=== PATIENT | male | born 1980 | race Caucasian/White ===

== ENCOUNTER 2017-11-21 12:28 | Emergency (ER) | payer OTHER ==
[2017-11-21 12:37] VITALS: RESP 16; TEMP 97.8
[2017-11-21] MEDS ORDERED: SODIUM CHLORIDE 0.9% 1,000 ML IV STA (12:46)
--- NOTE | 2017-11-21 12:49 | ED ---
General Adult HPI - General Chief complaint: Overdose Stated complaint: Overdose Time Seen by Provider: 11/21/17 12:31 Source: patient, EMS, RN notes reviewed, old records reviewed Mode of arrival: EMS - History of Present Illness Initial comments: This is a 37-year-old male to the ER for evaluation. Patient has a for evaluation regarding substance ingestion. Patient found by family member to not be acting appropriately. Patient is recent stress in life including recent passing of a relative. Patient denies taking any drugs earlier to medications. Unknown drug history. Patient states he took some Xanax and [place] - Related Data Home Medications Medication Instructions Recorded Confirmed No Known Home Medications [No 11/21/17 11/21/17 Known Home Medications] Allergies Allergy/AdvReac Type Severity Reaction Status Date / Time No Known Allergies Allergy Verified 11/21/17 12:51 Review of Systems ROS Statement: Those systems with pertinent positive or pertinent negative responses have been documented in the HPI. ROS Other: All systems not noted in ROS Statement are negative. Past Medical History Additional Past Medical History / Comment(s): back pain History of Any Multi-Drug Resistant Organisms: None Reported Past Surgical History: Orthopedic Surgery Past Psychological History: ADD/ADHD, Anxiety, Depression Smoking Status: Current every day smoker Past Alcohol Use History: None Reported Past Drug Use History: None Reported General Exam - General Exam Comments Initial Comments: Patient is tachycardic with dilated pupils General appearance: alert, in no apparent distress Head exam: Present: atraumatic, normocephalic, normal inspection Eye exam: Present: normal appearance, PERRL, EOMI. Absent: scleral icterus, conjunctival injection, periorbital swelling Pupils: Present: mydriatic ENT exam: Present: normal exam, mucous membranes moist Neck exam: Present: normal inspection. Absent: tenderness, meningismus, lymphadenopathy Respiratory exam: Present: normal lung sounds bilaterally. Absent: respiratory distress, wheezes, rales, rhonchi, stridor Cardiovascular Exam: Present: regular rate, normal rhythm, normal heart sounds. Absent: systolic murmur, diastolic murmur, rubs, gallop, clicks GI/Abdominal exam: Present: soft, normal bowel sounds. Absent: distended, tenderness, guarding, rebound, rigid Extremities exam: Present: normal inspection, full ROM, normal capillary refill. Absent: tenderness, pedal edema, joint swelling, calf tenderness Back exam: Present: normal inspection Neurological exam: Present: alert, oriented X3, CN II-XII intact Psychiatric exam: Present: normal affect, normal mood Skin exam: Present: warm, dry, intact, normal color. Absent: rash Course Vital Signs 11/21/17 11/21/17 12:33 15:59 Temperature 97.8 F 97.8 F Pulse Rate 134 H 109 H Respiratory 16 16 Rate Blood Pressure 156/101 160/83 O2 Sat by Pulse 97 98 Oximetry - Reevaluation(s) Reevaluation #1: 11/21/17 13:13 Patient based on symptoms and toxicology appears to be lying about drug ingestion Patient is awake and alert, not homicidal or suicidal, ambulate without difficulty EKG Findings - EKG Comments: EKG Findings:: EKG shows sinus tachycardia rate 108, WA 136, QRS 94, QTC 431 Medical Decision Making - Medical Decision Making 37 male brought in for a toxicology evaluation. Patient's awake and alert throughout ER stay no homicidal or suicidal. Patient can be discharged home - Lab Data Result diagrams: 11/21/17 13:03 11/21/17 13:03 Lab Results 11/21/17 11/21/17 11/21/17 Range/Units 13:03 13:03 13:03 WBC 10.9 H (3.8-10.6) k/uL RBC 5.27 (4.30-5.90) m/uL Hgb 16.5 (13.0-17.5) gm/dL Hct 50.5 (39.0-53.0) % MCV 95.9 (80.0-100.0) fL MCH 31.3 (25.0-35.0) pg MCHC 32.6 (31.0-37.0) g/dL RDW 12.7 (11.5-15.5) % Plt Count 262 (150-450) k/uL Neutrophils % 82 % Lymphocytes % 10 % Monocytes % 6 % Eosinophils % 1 % Basophils % 0 % Neutrophils # 8.9 H (1.3-7.7) k/uL Lymphocytes # 1.0 (1.0-4.8) k/uL Monocytes # 0.6 (0-1.0) k/uL Eosinophils # 0.1 (0-0.7) k/uL Basophils # 0.0 (0-0.2) k/uL PT (9.0-12.0) sec INR (<1.2) Sodium 139 (137-145) mmol/L Potassium 4.8 (3.5-5.1) mmol/L Chloride 100 (98-107) mmol/L Carbon Dioxide 26 (22-30) mmol/L Anion Gap 13 mmol/L BUN 11 (9-20) mg/dL Creatinine 0.73 (0.66-1.25) mg/dL Est GFR (MDRD) Af Amer >60 (>60 ml/min/1.73 sqM) Est GFR (MDRD) Non-Af >60 (>60 ml/min/1.73 sqM) Glucose 92 (74-99) mg/dL Calcium 9.9 (8.4-10.2) mg/dL Total Bilirubin 0.4 (0.2-1.3) mg/dL AST 19 (17-59) U/L ALT 23 (21-72) U/L Alkaline Phosphatase 54 (38-126) U/L Total Creatine Kinase 120 (55-170) U/L CK-MB (CK-2) 1.0 (0.0-2.4) ng/mL CK-MB (CK-2) Rel Index 0.8 Troponin I <0.012 (0.000-0.034) ng/mL Total Protein 6.8 (6.3-8.2) g/dL Albumin 4.0 (3.5-5.0) g/dL Lipase 28 (23-300) U/L Salicylates <1.0 mg/dL Urine Opiates Screen (NotDetected) Ur Oxycodone Screen (NotDetected) Urine Methadone Screen (NotDetected) Ur Propoxyphene Screen (NotDetected) Acetaminophen <10.0 ug/mL Ur Barbiturates Screen (NotDetected) U Tricyclic Antidepress (NotDetected) Ur Phencyclidine Scrn (NotDetected) Ur Amphetamines Screen (NotDetected) U Methamphetamines Scrn (NotDetected) U Benzodiazepines Scrn (NotDetected) Urine Cocaine Screen (NotDetected) U Marijuana (THC) Screen (NotDetected) Serum Alcohol <10 mg/dL 02/17/18 02/17/18 Range/Units 13:03 14:00 WBC (3.8-10.6) k/uL RBC (4.30-5.90) m/uL Hgb (13.0-17.5) gm/dL Hct (39.0-53.0) % MCV (80.0-100.0) fL MCH (25.0-35.0) pg MCHC (31.0-37.0) g/dL RDW (11.5-15.5) % Plt Count (150-450) k/uL Neutrophils % % Lymphocytes % % Monocytes % % Eosinophils % % Basophils % % Neutrophils # (1.3-7.7) k/uL Lymphocytes # (1.0-4.8) k/uL Monocytes # (0-1.0) k/uL Eosinophils # (0-0.7) k/uL Basophils # (0-0.2) k/uL PT 11.0 (9.0-12.0) sec INR 1.1 (<1.2) Sodium (137-145) mmol/L Potassium (3.5-5.1) mmol/L Chloride (98-107) mmol/L Carbon Dioxide (22-30) mmol/L Anion Gap mmol/L BUN (9-20) mg/dL Creatinine (0.66-1.25) mg/dL Est GFR (MDRD) Af Amer (>60 ml/min/1.73 sqM) Est GFR (MDRD) Non-Af (>60 ml/min/1.73 sqM) Glucose (74-99) mg/dL Calcium (8.4-10.2) mg/dL Total Bilirubin (0.2-1.3) mg/dL AST (17-59) U/L ALT (21-72) U/L Alkaline Phosphatase (38-126) U/L Total Creatine Kinase (55-170) U/L CK-MB (CK-2) (0.0-2.4) ng/mL CK-MB (CK-2) Rel Index Troponin I (0.000-0.034) ng/mL Total Protein (6.3-8.2) g/dL Albumin (3.5-5.0) g/dL Lipase (23-300) U/L Salicylates mg/dL Urine Opiates Screen Detected H (NotDetected) Ur Oxycodone Screen Not Detected (NotDetected) Urine Methadone Screen Not Detected (NotDetected) Ur Propoxyphene Screen Not Detected (NotDetected) Acetaminophen ug/mL Ur Barbiturates Screen Not Detected (NotDetected) U Tricyclic Antidepress Not Detected (NotDetected) Ur Phencyclidine Scrn Not Detected (NotDetected) Ur Amphetamines Screen Detected H (NotDetected) U Methamphetamines Scrn Not Detected (NotDetected) U Benzodiazepines Scrn Detected H (NotDetected) Urine Cocaine Screen Not Detected (NotDetected) U Marijuana (THC) Screen Detected H (NotDetected) Serum Alcohol mg/dL Disposition Clinical Impression: Accidental drug ingestion, Drug overdose Disposition: HOME SELF-CARE Condition: Good Instructions: Polysubstance Abuse (ED) Referrals: None,Stated [Primary Care Provider] - 1-2 days
[2017-11-21 13:26] LABS: Basophils % (A) 0 %; Eosinophils # (A) 0.1 k/uL (0-0.7); Eosinophils % (A) 1 %; HCT 50.5 % (39.0-53.0); HGB 16.5 gm/dL (13.0-17.5); Lymphocytes % (A) 10 %; MCH 31.3 pg (25.0-35.0); MCHC 32.6 g/dL (31.0-37.0); MCV 95.9 fL (80.0-100.0); Mean Platelet Volume 7.4; Monocytes # (A) 0.6 k/uL (0-1.0); Monocytes % (A) 6 %; Neutrophils # (A) 8.9 k/uL (1.3-7.7); Neutrophils % (A) 82 %; Platelet Count 262 k/uL (150-450); RBC 5.27 m/uL (4.30-5.90); RDW 12.7 % (11.5-15.5); WBC 10.9 k/uL (3.8-10.6)
[2017-11-21 13:38] LABS: ALT 23 U/L (21-72); AST 19 U/L (17-59); Acetaminophen <10.0 ug/mL; Alcohol <10 mg/dL; Alkaline Phosphatase 54 U/L (38-126); Anion Gap 13 mmol/L; Blood Urea Nitrogen 11 mg/dL (9-20); Calcium 9.9 mg/dL (8.4-10.2); Carbon Dioxide 26 mmol/L (22-30); Chloride 100 mmol/L (98-107); Glucose 92 mg/dL (74-99); Lipase 28 U/L (23-300); Potassium 4.8 mmol/L (3.5-5.1); Salicylate <1.0 mg/dL; Sodium 139 mmol/L (137-145); Total Bilirubin 0.4 mg/dL (0.2-1.3); Total Protein 6.8 g/dL (6.3-8.2)
[2017-11-21 13:42] LABS: INR 1.1 (<1.2)
[2017-11-21 13:59] LABS: Creatine Kinase 120 U/L (55-170)
[2017-11-21 14:11] LABS: Troponin I <0.012 ng/mL (0.000-0.034)
[2017-11-21 14:21] LABS: Amphetamine Screen,Urine Detected (NotDetected); Barbiturate Screen,Urine Not Detected (NotDetected); Benzodiazepines Screen,Urine Detected (NotDetected); Cocaine Screen,Urine Not Detected (NotDetected); Methadone Screen, Urine Not Detected (NotDetected); Opiate Screen,Urine Detected (NotDetected); Oxycodone Screen, Urine Not Detected (NotDetected); Phencyclidine Screen,Urine Not Detected (NotDetected); Tricyclic Antidepressant,Urine Not Detected (NotDetected); Urn Cannabinoid Scrn Detected (NotDetected)
[2017-11-21 15:59] VITALS: BP 160/83; PULSE 109
== END 2017-11-21 15:58 | disposition home or self-care (01) ==
LOC: EC 12:28
DX: T42.4X1A Poisoning by benzodiazepines, accidental (unintentional), initial encounter (principal); T39.1X1A Poisoning by 4-Aminophenol derivatives, accidental (unintentional), initial encounter; T40.2X1A Poisoning by other opioids, accidental (unintentional), initial encounter; R00.0 Tachycardia, unspecified; H57.04 Mydriasis; F17.200 Nicotine dependence, unspecified, uncomplicated; Z63.4 Disappearance and death of family member
CPT/HCPCS: 36415; 80053; 80306; 80320; 82550; 82553; 83520; 83690; 84484; 85025; 85610; 93005; 96360; 99285

== ENCOUNTER 2018-03-06 11:32 | Inpatient (IN) | payer OTHER ==
[2018-03-06] MEDS ORDERED: KETOROLAC 30 MG/ML 1 ML VIAL IVP STA (12:17)
[2018-03-06] MEDS ORDERED: PIPERACILLIN-TAZOBACTAM 3.375 GM in DEXTROSE/WATER 1 50ML.BAG IVPB STA (12:20)
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
[2018-03-06 12:46] LABS: Basophils % (A) 0 %; Eosinophils # (A) 0.1 k/uL (0-0.7); Eosinophils % (A) 1 %; HCT 45.8 % (39.0-53.0); HGB 15.1 gm/dL (13.0-17.5); Lymphocytes # (A) 1.6 k/uL (1.0-4.8); Lymphocytes % (A) 13 %; MCH 30.7 pg (25.0-35.0); MCV 92.9 fL (80.0-100.0); Mean Platelet Volume 7.1; Monocytes # (A) 0.8 k/uL (0-1.0); Monocytes % (A) 6 %; Neutrophils # (A) 9.8 k/uL (1.3-7.7); Neutrophils % (A) 78 %; Platelet Count 248 k/uL (150-450); RBC 4.93 m/uL (4.30-5.90); RDW 14.8 % (11.5-15.5); WBC 12.5 k/uL (3.8-10.6)
[2018-03-06 12:56] LABS: ALT 28 U/L (21-72); AST 25 U/L (17-59); Albumin 3.7 g/dL (3.5-5.0); Alkaline Phosphatase 46 U/L (38-126); Anion Gap 11 mmol/L; Blood Urea Nitrogen 10 mg/dL (9-20); Calcium 8.6 mg/dL (8.4-10.2); Carbon Dioxide 25 mmol/L (22-30); Chloride 103 mmol/L (98-107); Glucose 110 mg/dL (74-99); Potassium 4.3 mmol/L (3.5-5.1); Sodium 139 mmol/L (137-145); Total Bilirubin 0.6 mg/dL (0.2-1.3); Total Protein 6.3 g/dL (6.3-8.2)
--- NOTE | 2018-03-06 13:19 | XR ---
EXAMINATION TYPE: XR hand complete RT DATE OF EXAM: 03/06/2018 CLINICAL HISTORY: pain TECHNIQUE: Frontal, lateral and oblique images of the right hand are obtained. COMPARISON: None. FINDINGS: There is no acute fracture/dislocation evident. The joint spaces appear within normal limi ts. The overlying soft tissue appears unremarkable. IMPRESSION: There is no acute fracture or dislocation ICD 10 NO FRACTURE, INITIAL EVALUATION
[2018-03-06] MEDS ORDERED: HYDROcodone/APAP 5-325MG 1 EACH TAB PO PRN (13:33)
[2018-03-06] MEDS ORDERED: ACETAMINOPHEN TAB 325 MG TAB PO PRN (13:33)
[2018-03-06] MEDS ORDERED: ONDANSETRON 4 MG/2 ML VIAL IVP PRN (13:33)
[2018-03-06] MEDS ORDERED: KETOROLAC 30 MG/ML 1 ML VIAL IVP PRN (13:33)
[2018-03-06] MEDS ORDERED: NALOXONE 0.4 MG/ML 1 ML VIAL IV PRN (13:33)
[2018-03-06] MEDS ORDERED: HYDROcodone/APAP 10-325MG 1 EACH TAB PO ONE (13:45)
[2018-03-06] MEDS: SODIUM CHLORIDE 0.9% 1,000 ML IV SCH (14:02)
[2018-03-06 14:45] VITALS: BMI 27.3
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
[2018-03-06] MEDS: MORPHINE SULFATE 2 MG/ML SYRINGE IVP PRN ×2 (17:01→22:12)
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
[2018-03-06] MEDS: PIPERACILLIN-TAZOBACTAM 3.375 GM in DEXTROSE/WATER 1 50ML.BAG IVPB SCH (23:38)
[2018-03-07] MEDS: MORPHINE SULFATE 2 MG/ML SYRINGE IVP PRN ×5 (05:26→23:18)
[2018-03-07] MEDS: SODIUM CHLORIDE 0.9% 1,000 ML IV SCH ×2 (05:26→13:45)
[2018-03-07] MEDS: PIPERACILLIN-TAZOBACTAM 3.375 GM in DEXTROSE/WATER 1 50ML.BAG IVPB SCH ×2 (07:44→16:55)
[2018-03-07] MEDS ORDERED: LIDOCAINE 1% INJ 10MG/ML (20 ML MDV) SQ ONE (09:18)
[2018-03-07] MEDS ORDERED: LIDOCAINE 1% INJ 10MG/ML (20 ML MDV) ONE (09:21)
--- NOTE | 2018-03-07 10:23 | P.PN ---
Progress Note - Text Progress Note Date: 03/07/18 Patient is seen and examined today at bedside. He is able to sleep last night and he is remained afebrile but he still has significant soreness at his right middle finger. He is not having pain in his wrist or his other fingers or his elbow or arm. He's afebrile stable vital signs. His chest has good excursion deep inspiration and expiration At his right middle finger there is still significant swelling and erythema. There is 3 areas at his middle finger essentially dorsally which have evidence of abscess approximately 1 x 1 cm and half by half centimeter. These seem to be the primary focal point of his soreness. He does not have evidence of flexor tenosynovitis. He has some pain with motion this morning. There is no streaking up his arm. There is no tenderness over his palm. There is no out of proportion pain. There is no pain with passive stretch. Assessment and plan Superficial abscesses at the dorsum the right middle finger 3 due to a cat bite There has been some improvement with the IV antibiotics to isolate the infection more specifically but there still appears to be some pus under pressure with abscess formation for the dorsum of his middle phalanx at the long finger and at the proximal phalanx of his long finger. I discussed the different treatment options with him and also discussed the possibility of monitoring with continued antibiotics versus the possibility of doing incision and drainage either at bedside or in the operating room. I think he can do well with irrigation with incision and drainage here at bedside with a digital block. I discussed the procedure with him at length I discussed the nature of the numbing medicine the risks and, occasions associated with the procedure and the possibilities of continuous infection or the possible need for further surgery and further infection. I think that this has good chance of alleviating significant portion of his symptoms and allowing the infection to clear further. I discussed this with him answers questions and he is agreeable to proceed with irrigation and debridement with digital block here at bedside. Procedure note At bedside under sterile conditions I did performed a digital block with 1% lidocaine approximately 8 mL at the base of his middle finger of the right hand. The finger was sterilely prepped and I then performed a incision and drainage with some excisional debridement at the middle phalanx 2 in the proximal phalanx 1. The abscess at the middle phalanx head and possible phalanx were of approximately 1 x 1 cm and the other 2 were approximately half by half centimeter in size. There was obvious pus from the abscesses themselves approximately half cc. Cultures were taken and sent to microbiology for culture. I debrided some of the denuded tissue and some of the lytic skin over the area and that was excised at each space. I was able to clean out the areas of pus to have no further purulence at the 3 spaces. There is no evidence of involvement of the tendon sheaths. No evidence of involvement of the bone. There is no further pus upon milking of the tendon sheaths. The wounds were copiously irrigated with 1 L of sterile solution. There is no evidence of further purulence. I was able to dress it with a bulky sterile dressing at the middle finger. The patient tolerated the procedure well. I think the patient should stay overnight one more night for continued IV antibiotics and monitoring. This should make further improvement overnight and I think it would be okay for him to likely be discharged home tomorrow with oral antibiotics and close follow-up. Dr. Simms was at bedside during the time of the procedure as well and he is in agreement.
[2018-03-07] MEDS ORDERED: DIPH,PERTUS(ACELL)TETVAC-LF 0.5 ML VIAL IM ONE (13:56)
[2018-03-07] MEDS ORDERED: NICOTINE 21MG/24HR PATCH TRANSDERM STA (13:59)
[2018-03-07] MEDS: MULTIVITAMINS, THERA 1 EACH TAB PO SCH (16:56)
--- NOTE | 2018-03-07 20:10 | PN ---
PROGRESS NOTE CHIEF COMPLAINT: Cat bite of the right middle finger with cellulitis. HISTORY OF PRESENT ILLNESS: This gentleman's finger has required incision and drainage by Orthopedics. The redness and swelling in the hands improved. PHYSICAL EXAM: He is in the middle of a procedure at the bedside now by Orthopedics. IMPRESSION: Cat bite with abscess and cellulitis right middle finger and right hand. PLAN: Continue with IV fluids and antibiotics after incision and drainage and debridement. MMODL / IJN: [id number] /
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
[2018-03-08] MEDS: PIPERACILLIN-TAZOBACTAM 3.375 GM in DEXTROSE/WATER 1 50ML.BAG IVPB SCH ×3 (00:29→16:07)
[2018-03-08] MEDS: SODIUM CHLORIDE 0.9% 1,000 ML IV SCH ×2 (00:34→11:07)
[2018-03-08] MEDS: MORPHINE SULFATE 2 MG/ML SYRINGE IVP PRN ×2 (05:21→09:22)
[2018-03-08] MEDS: NICOTINE 21MG/24HR PATCH TRANSDERM SCH (09:13)
[2018-03-08] MEDS: MULTIVITAMINS, THERA 1 EACH TAB PO SCH (09:13)
--- NOTE | 2018-03-08 11:56 | NM ---
EXAMINATION TYPE: NM bone 3 phase DATE OF EXAM: 03/08/2018 COMPARISON: Right hand 03/06/2018 HISTORY: Osteomyelitis right hand Triple phase bone scintigraphy was performed following the injection of 26.4 mCi Tc 99m MDP. Immedia te images and 3 hours post injection images acquired. FINDINGS: There is increased blood flow and blood pool activity to the third digit of the right hand, delayed i maging shows focal uptake at the level of the proximal interphalangeal joint of the third digit of th e right. IMPRESSION: Findings suggest osteomyelitis to the third digit of the right hand.
[2018-03-08] MEDS: HYDROcodone/APAP 5-325MG 1 EACH TAB PO PRN ×3 (12:33→20:53)
--- NOTE | 2018-03-08 15:05 | PN ---
PROGRESS NOTE CHIEF COMPLAINT: Cat bite to the right hand. HISTORY OF PRESENT ILLNESS: This gentleman is having quite a bit of pain in the right middle finger after debridement yesterday. Redness and swelling are receding in the right hand and finger. PHYSICAL EXAM: Chest is clear. Cardiac exam is normal. Abdomen is soft, nontender. IMPRESSION: 1. Cat bite to the right middle finger with cellulitis of the finger and right hand. 2. Abrasions on the left knee and left elbow. PLAN: Continue with IV fluids and antibiotics. MMODL / IJN: [id number] /
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
[2018-03-08] MEDS: KETOROLAC 30 MG/ML 1 ML VIAL IVP SCH (17:43)
--- NOTE | 2018-03-08 17:47 | P.PN ---
Progress Note - Text Progress Note Date: 03/08/18 Patient is a very pleasant 38-year-old male seen and examined at bedside following evaluation after sustaining 3 wounds to his right middle finger due to cat bite. Yesterday he underwent a bedside irrigation and debridement performed by Dr. Mac Gurrola. Since that time he states his wounds have been improving. He continues to be on IV antibiotics as well. He continues to be followed by Dr. Kirby in infectious disease who just saw him and changed his dressing. He states Dr. Kirby is planning to determine if he is able to discharge him on a oral medication, but if he is unable to do so, he'll most likely be discharged with a PICC line to receive IV antibiotics. They're planning for discharge tomorrow. Patient is not currently complaining of any significant pain at his right middle finger. Patient underwent a bone scan for his right hand this morning. Physical Exam: Patient is awake, alert, and oriented 3 Vital signs stable Good chest excursion with deep inspiration and expiration Dressing over the right middle finger is clean, dry, and intact No evidence of active drainage on the dressing Patient is able perform active range of motion of the MCP joint of the right middle finger without difficulty No evidence of cellulitis of the right hand, wrist, or other fingers on the right hand excluding the right middle finger No pain with palpation or the right wrist, right hand, and other fingers of the right hand excluding the right middle finger Pertinent studies: Nuclear medicine bone scan taken on 03/08/2018: Findings suggest osteomyelitis to the third digit of the right hand Assessment: Superficial abscesses at the dorsum of the right middle finger 3 due to cat bite Right middle finger pain Suggestive osteomyelitis right middle finger Plan: 1. Patient has been discussed in detail with Dr. Mac Gurrola who has also reviewed his nuclear bone scan. At this time, we will currently plan to continue with conservative treatment and are not currently planning for a further irrigation and debridement. Patient states his wounds have been improving since the bedside irrigation and debridement and with his course of IV antibiotics. He is currently in a clean dressing and is able to move his fingers without significant difficulty at the MCP joint. He continues to be followed by Dr. Kirby in infectious disease who is planning further treatment with appropriate antibiotics. At this time, patient be clear for discharge from an orthopedic standpoint. We will plan to have him follow up in the office this coming 03/12/2018, for further evaluation. We will proceed forward with appropriate treatment as needed at that time. 2. Patient will continue be followed by Dr. Kirby in infectious disease for further treatment and evaluation 3. Patient will continue be followed by Dr. Simms in medicine 4. From an orthopedic standpoint, patient is cleared for discharge once cleared by other medical providers. Patient will plan to follow-up with Wojciech Alves PA-C or Dr. Mac Gurrola at [facility] this coming 03/12/2018, for further evaluation. 5. Patient has been discussed in detail with Dr. Mac Gurrola he agrees with this plan
[2018-03-08 21:21] VITALS: RESP 16; TEMP 98
[2018-03-09] MEDS: KETOROLAC 30 MG/ML 1 ML VIAL IVP SCH ×3 (00:19→12:22)
[2018-03-09] MEDS: SODIUM CHLORIDE 0.9% 1,000 ML IV SCH (00:20)
[2018-03-09] MEDS: PIPERACILLIN-TAZOBACTAM 3.375 GM in DEXTROSE/WATER 1 50ML.BAG IVPB SCH ×2 (00:20→08:34)
[2018-03-09] MEDS: HYDROcodone/APAP 5-325MG 1 EACH TAB PO PRN ×3 (01:19→09:02)
[2018-03-09 07:43] VITALS: BP 172/92; PULSE 76
[2018-03-09] MEDS: NICOTINE 21MG/24HR PATCH TRANSDERM SCH (08:34)
--- NOTE | 2018-03-09 08:41 | P.PN ---
Progress Note - Text Progress Note Date: 03/09/18 Patient is a very pleasant 38-year-old male seen and examined at bedside following evaluation after sustaining 3 wounds to his right middle finger due to cat bite. Thursday he underwent a bedside irrigation and debridement performed by Dr. Mac Gurrola. He states again this morning his wounds have been improving. He continues to be on IV antibiotics as well. He continues to be followed by Dr. Kirby in infectious disease. He states Dr. Kirby is planning to determine if he is able to discharge him on a oral medication, but if he is unable to do so, he'll most likely be discharged with a PICC line to receive IV antibiotics. They're planning for discharge today. Patient is not currently complaining of any significant pain at his right middle finger. Patient underwent a bone scan for his right hand yesterday morning. This morning he was able to shower and had the dressing changed over the right middle finger. Physical Exam: Patient is awake, alert, and oriented 3 Vital signs stable Good chest excursion with deep inspiration and expiration Dressing over the right middle finger is clean, dry, and intact; dressing is removed during physical examination and new dressing is applied with Adaptic, nonstick Telfa, stretch wrap, and tape Some mild erythema over the right middle finger at the mid phalanx and distal phalanx No significant erythema over the MCP joint of the right middle finger or over the right hand Patient is able perform active range of motion of the MCP joint of the right middle finger without difficulty Patient is able to wiggle DIP joint and PIP joint of the right middle finger without increased pain or difficulty Neurovascular intact right middle finger No active drainage from the wound sites of the right middle finger; wound sites are flat without raised elevation Evidence of soft eschar at the wound edges No evidence of cellulitis of the right hand, wrist, or other fingers on the right hand excluding the right middle finger No pain with palpation or the right wrist, right hand, and other fingers of the right hand excluding the right middle finger Pertinent studies: Nuclear medicine bone scan taken on 03/08/2018: Findings suggest osteomyelitis to the third digit of the right hand Assessment: Superficial abscesses at the dorsum of the right middle finger 3 due to cat bite Right middle finger pain Suggestive osteomyelitis right middle finger Plan: 1. We do not have any change in our plan of care as compared to yesterday. Patient has been discussed in detail with Dr. Mac Gurrola who has also reviewed his nuclear bone scan. At this time, we will currently plan to continue with conservative treatment and are not currently planning for a further irrigation and debridement. Patient states his wounds have been improving since the bedside irrigation and debridement and with his course of IV antibiotics. Resting has been changed and reapplied to the right middle finger. He is able to move his fingers without significant difficulty at the MCP joint. He continues to be followed by Dr. Kirby in infectious disease who is planning further treatment with appropriate antibiotics. At this time, patient be clear for discharge from an orthopedic standpoint. We will plan to have him follow up in the office this coming 03/12/2018, for further evaluation. We will proceed forward with appropriate treatment as needed at that time. 2. Patient will continue be followed by Dr. Kirby in infectious disease for further treatment and evaluation 3. Patient will continue be followed by Dr. Simms in medicine 4. From an orthopedic standpoint, patient is cleared for discharge once cleared by other medical providers. Patient will plan to follow-up with Wojciech Alves PA-C or Dr. Mac Gurrola at [facility] this coming 03/12/2018, for further evaluation. 5. Patient has been discussed in detail with Dr. Mac Gurrola he agrees with this plan
[2018-03-09] MEDS: MULTIVITAMINS, THERA 1 EACH TAB PO SCH (12:23)
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
--- NOTE | 2018-03-09 20:09 | DS ---
DISCHARGE SUMMARY CHIEF COMPLAINT: Cat bite of the right middle finger. HISTORY OF PRESENT ILLNESS AND PHYSICAL EXAM: The details of this man's history and history and physical can be found in the initial workup. LABORATORY STUDIES: While he was in a hospital he had laboratory studies, details of which can be found in the laboratory section of his chart. COURSE IN THE HOSPITAL: After admission he was placed on bedrest, started on intravenous fluids and IV antibiotics. He was seen by Orthopedics, who did an incision and drainage on the thumb, which greatly improved his discomfort and the extent of cellulitis. His hand improved almost immediately. He was doing well and it was felt that he could go home on the and he will go home on Augmentin 875 twice a day and be seen in the office in a day or two. FINAL DIAGNOSES: 1. Cat bite of the right middle finger with abscess, cellulitis of the finger and cellulitis of the right hand. 2. Abrasion of the left elbow and left knee. OPERATIONS: Incision and drainage of the middle finger. CONSULTATION: Orthopedics and Infectious Disease. He is improved. MMODL / IJN: [id number] /
== END 2018-03-09 13:30 | disposition home or self-care (01) | DRG 580 ==
LOC: EC 11:32 → 5MS5E 13:45
PROVIDERS: ADMIT Family Medicine; ATTEND Family Medicine
PROC: 0JBJ0ZZ Excision of Right Hand Subcutaneous Tissue and Fascia, Open Approach (ICD-10-PCS; principal; 2018-03-06)
DX: L03.011 Cellulitis of right finger (principal); A28.0 Pasteurellosis; L02.511 Cutaneous abscess of right hand; M86.9 Osteomyelitis, unspecified; W55.01XA Bitten by cat, initial encounter; S61.252A Open bite of right middle finger without damage to nail, initial encounter; S50.312A Abrasion of left elbow, initial encounter; S80.212A Abrasion, left knee, initial encounter; F17.200 Nicotine dependence, unspecified, uncomplicated; F32.9 Major depressive disorder, single episode, unspecified; F90.9 Attention-deficit hyperactivity disorder, unspecified type; Z82.49 Family history of ischemic heart disease and other diseases of the circulatory system; Z91.5 Personal history of self-harm
CPT/HCPCS: 36415; 78315; 80053; 83605; 85025; 87040; 87070; 87205; 90715; 96365; 96375; 99284

== ENCOUNTER 2018-09-08 02:17 | Emergency (ER) | payer BC, OTHER ==
[2018-09-08 02:23] VITALS: BP 164/95; PULSE 83; RESP 20; TEMP 98.6
[2018-09-08] MEDS ORDERED: KETOROLAC 30 MG/ML 1 ML VIAL IM STA (02:32)
[2018-09-08] MEDS ORDERED: ORPHENADRINE 30 MG/ML 2 ML VIAL IM STA (02:32)
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
--- NOTE | 2018-09-08 02:52 | XR ---
EXAMINATION TYPE: XR shoulder complete RT DATE OF EXAM: 09/08/2018 COMPARISON: NONE HISTORY: Shoulder pain TECHNIQUE: 3 views FINDINGS: I see no fracture nor dislocation. Glenohumeral joint is intact. There are no pathologic ca lcifications. IMPRESSION: Negative right shoulder exam.
== END 2018-09-08 03:06 | disposition home or self-care (01) ==
LOC: EC 02:17
DX: S46.911A Strain of unspecified muscle, fascia and tendon at shoulder and upper arm level, right arm, initial encounter (principal); F32.9 Major depressive disorder, single episode, unspecified; F17.200 Nicotine dependence, unspecified, uncomplicated; Z79.899 Other long term (current) drug therapy; X50.9XXA Other and unspecified overexertion or strenuous movements or postures, initial encounter
CPT/HCPCS: 73030; 99283; 96372 ×2; J2360; J1885